=== PATIENT | male | born 1955 | race Caucasian/White ===

== ENCOUNTER 2024-09-03 02:20 | Outpatient (CLI) | payer BC, SELFPAY ==
[2024-09-03 13:30] LABS: Estimated GFR 97.00 (mL/min/1.73m2)
[2024-09-03] MEDS: Normal Saline - Diluent 50 ML VIAL IJ (14:26)
[2024-09-03] MEDS: Omnipaque 350 MG/ML 100 ML BTL IJ (14:29)
--- NOTE | 2024-09-03 14:30 | DI.CT_ITS ---
Exam(s) CT NECK W EXAM: CT NECK W INDICATION: Mass/Lump on Neck R22.1 RT side neck 4x4 CM mass. COMPARISON: No exams were available for comparison TECHNIQUE: FINDINGS: VISUALIZED PARANASAL SINUSES: There is a round 1.2 x 1.2 cm post inflammatory retention cyst in the left maxillary sinus. No associated fluid level. Remainder of the paranasal sinuses are clear. NASOPHARYNX: Unremarkable ORODENTAL: Unremarkable. OROPHARYNX: Unremarkable. No masses evident. HYPOPHARYNX: Unremarkable. Valleculae and epiglottis and aryepiglottic folds appear normal. VOCAL CORDS: No obvious masses. THYROID GLAND: There is gross enlargement and heterogeneous enhancement of the right thyroid lobe. This deviates the trachea towards the opposite-left side. The isthmus and left thyroid lobe are not discernible. In addition, just lateral to this is a large mass measuring 4.7 cm craniocaudal by 3.8 cm wide by 3 cm AP, possibly a grossly enlarged lymph node. This is immediately behind the right sternocleidomastoid muscle and extends down to supraclavicular region. The enlarged right thyroid lobe extends into the upper mediastinum.. SALIVARY GLANDS: Unremarkable. No significant findings in the parotid and submandibular glands. LYMPH NODES: No adenopathy seen in the opposite-left side of the neck. OTHER: VISUALIZED LUNG APICES: No significant findings. IMPRESSION: 1. There is a large mass in the lower right side of the neck behind the sternocleidomastoid muscle and just lateral to the grossly enlarged right thyroid lobe, this mass measuring 3.8 cm wide by 3 cm AP x 4.7 cm craniocaudal. Suspect that this is a grossly enlarged lymph node and that this may be related to the adjacent grossly enlarged and heterogeneous abnormal appearing right thyroid lobe (which itself is causing deviation of the trachea towards the opposite-left side.) The enlarged right thyroid lobe also extends caudally into the upper right side of the mediastinum. Suspect thyroid neoplasm with adjacent enlarged lymph node as diagnosis here. 2. 3. RADIATION DOSE DELIVERED: 414.19mGy.cm Total DLP DATA REPOSITORY: All CT scans at this facility are submitted to the National Radiology Data Registry (NRDR) Dose Index Registry (DIR) with the [employer] ([employer]). RADIATION OPTIMIZATION: All CT scans at this facility use at least one of these dose optimization techniques: automated exposure control; mA and/or kV adjustment per patient size (includes targeted exams where dose is matched to clinical indication); or iterative reconstruction.
== END 2024-09-03 02:40 ==
LOC: DI 02:20
PROVIDERS: PCP Physician Assistant Medical; Visit Provider Physician Assistant Medical
DX: R22.1 Localized swelling, mass and lump, neck (principal)
CPT/HCPCS: 70491; 82565; J3490

== ENCOUNTER 2024-09-04 17:19 | Outpatient (REF) | payer BC, SELFPAY ==
--- NOTE | 2024-09-04 15:48 | PAPNONF_PTH ---
PATIENT: Juan Don LOC: [facility] U#:[id number] AGE/SX: 69/M ROOM: RE09/04/[address]: Kai Olivares MD : [id number] BED: DIS: 09/04/2024 SPEC #: [id number] RECD: 09/05/24 13:17 STATUS: YEYO REVj #: [id number] KIP: 09/04/24 15:[address]: Kai Olivares DEPT: [facility] Cytology RECD BY: Marilyn Robin ENTERED: 09/05/24 13:19 SP TYPE: ALLI GARCIA DR: Raúl Fitzpatrick Tissues: 1 - BODY FLUID CYTO-FINE NEEDLE ASPIRATE[facility] Procedures: BODY FLUID CYTO-FINE NEEDLE ASPIRATE[facility] Comments: [id number] (REFRIGERATED)
== END 2024-09-04 17:20 | disposition home or self-care (01) ==
LOC: LBN 17:19
PROVIDERS: PCP Physician Assistant Medical; Visit Provider Otolaryngology
DX: R22.1 Localized swelling, mass and lump, neck (principal)
CPT/HCPCS: 88104